=== PATIENT | female | born 1960 | race Caucasian/White ===

== ENCOUNTER 2017-11-17 03:05 | Emergency (ER) | payer OTHER ==
[2017-11-17] MEDS ORDERED: LIDOCAINE HCL 1% 20 ML VIAL ONE ×2 (03:56→04:04)
[2017-11-17] MEDS ORDERED: TETANUS/DIPHTHERIA TOXOID [ADULT] 0.5 ML VIAL IM ONE (04:04)
[2017-11-17 04:09] LABS: BASOPHILS % (AUTO) 0.7 % (0.0-5.0); LYMPHOCYTES % (AUTO) 20.8 % (21.0-51.0); MEAN CORPUSCULAR HEMOGLOBIN 31.1 pg (27.0-33.0); MEAN CORPUSCULAR HGB CONC 34.1 g/dL (32.0-36.0); MEAN CORPUSCULAR VOLUME 91.3 fL (79-99); MONOCYTES % (AUTO) 6.1 % (3.0-13.0); NEUTROPHILS % (AUTO) 68.4 % (40.0-77.0); PLATELET COUNT (AUTO) 263 K/uL (130-400); RED BLOOD CELL COUNT(AUTO) 4.49 MIL/uL (4.00-5.50); RED CELL DISTRIBUTION WIDTH 13.7 % (11.0-15.5); WHITE BLOOD COUNT (AUTO) 9.4 K/uL (4.8-10.8)
[2017-11-17 04:20] LABS: INR 0.94 (0.85-1.15); PARTIAL THROMBOPLASTIN TIME 27.4 SEC (26.3-35.5); PROTHROMBIN TIME 9.9 SEC (9.6-11.6)
[2017-11-17] MEDS ORDERED: IPRATROPIUM/ALBUTEROL SULFATE 3 ML SOLUTION IH ONE (04:20)
[2017-11-17 04:22] LABS: CREATININE 0.9 mg/dL (0.5-1.5)
[2017-11-17 04:27] LABS: ALBUMIN 3.3 g/dL (3.5-5.0); BILIRUBIN,TOTAL 0.2 mg/dL (0.2-1.0)
[2017-11-17 04:34] LABS: CREATINE KINASE MB 2.9 ng/mL (0.5-3.6); CREATINE KINASE, TOTAL 136 U/L (21-232); MYOGLOBIN 56 ng/mL (10-92); TROPONIN I < 0.04 ng/mL (0.00-0.06)
[2017-11-30] MEDS ORDERED: VALS320T15 PO (10:58)
== END 2017-11-17 05:13 | disposition home or self-care (01) ==
LOC: EDH 03:05
DX: S02.2XXA Fracture of nasal bones, initial encounter for closed fracture (principal); S01.21XA Laceration without foreign body of nose, initial encounter; I10 Essential (primary) hypertension; E11.9 Type 2 diabetes mellitus without complications; E78.5 Hyperlipidemia, unspecified; I25.10 Atherosclerotic heart disease of native coronary artery without angina pectoris; I48.91 Unspecified atrial fibrillation; J44.9 Chronic obstructive pulmonary disease, unspecified; Z79.4 Long term (current) use of insulin; Z72.0 Tobacco use; W01.198A Fall on same level from slipping, tripping and stumbling with subsequent striking against other object, initial encounter; Y93.01 Activity, walking, marching and hiking; Y92.89 Other specified places as the place of occurrence of the external cause; Y99.8 Other external cause status
CPT/HCPCS: 12011; 36415; 70450; 70486; 71045; 80053; 82550; 82553; 83874; 84484; 85025; 85610; 85730; 90471; 90714; 93005; 94640

== ENCOUNTER 2017-11-30 02:00 | Inpatient (IN) | payer OTHER ==
[~2017-11-30] VITALS: Ht 157.5 cm; Wt 97.4 kg
[2017-11-30 02:57] LABS: BASOPHILS % (AUTO) 0.5 % (0.0-5.0); EOSINOPHILS % (AUTO) 3.1 % (0.0-8.0); HEMATOCRIT 40.4 % (36-48); LYMPHOCYTES % (AUTO) 23.2 % (21.0-51.0); MEAN CORPUSCULAR HEMOGLOBIN 31.9 pg (27.0-33.0); MEAN CORPUSCULAR HGB CONC 34.4 g/dL (32.0-36.0); MEAN CORPUSCULAR VOLUME 92.6 fL (79-99); MONOCYTES % (AUTO) 6.9 % (3.0-13.0); NEUTROPHILS % (AUTO) 66.3 % (40.0-77.0); PLATELET COUNT (AUTO) 268 K/uL (130-400); RED BLOOD CELL COUNT(AUTO) 4.37 MIL/uL (4.00-5.50); RED CELL DISTRIBUTION WIDTH 14.1 % (11.0-15.5)
[2017-11-30 03:09] LABS: CREATININE 0.8 mg/dL (0.5-1.5); POTASSIUM 3.9 mmol/L (3.5-5.1)
[2017-11-30 03:13] LABS: ALBUMIN 3.4 g/dL (3.5-5.0); BILIRUBIN,TOTAL 0.4 mg/dL (0.2-1.0); TOTAL PROTEIN, SERUM 7.3 g/dL (6.0-8.3)
[2017-11-30] MEDS ORDERED: VANCOMYCIN 1GM+NS 250ML 250 ML IV ONE (05:30)
[2017-11-30] MEDS ORDERED: SODIUM CHLORIDE 0.9% 1000ML 1,000 ML IV ONE (06:01)
[2017-11-30 08:10] VITALS: BP 139/87
[2017-11-30] MEDS ORDERED: LAMO200T PO (10:58)
[2017-11-30] MEDS ORDERED: VALS320T16 PO (10:58)
[2017-11-30] MEDS ORDERED: PRAM1.5T3 PO (10:58)
[2017-11-30] MEDS ORDERED: MULT-1192 PO (10:58)
[2017-11-30] MEDS ORDERED: METO25TA6 PO (10:58)
[2017-11-30] MEDS ORDERED: INSLAN SQ (10:58)
[2017-11-30] MEDS ORDERED: ASPI-555 PO (10:58)
[2017-11-30] MEDS ORDERED: CLOP75TA14 PO (10:58)
[2017-11-30] MEDS ORDERED: CITA-107 PO (10:58)
[2017-11-30] MEDS ORDERED: THEO400T3 PO (10:58)
[2017-11-30] MEDS ORDERED: ATOR10 PO (10:58)
[2017-11-30] MEDS ORDERED: AMLO10TA2 PO (10:58)
[2017-11-30] MEDS ORDERED: LEVE1000 PO (10:58)
[2017-11-30] MEDS ORDERED: CYAN100099 PO (10:58)
[2017-11-30 11:00] VITALS: BP 131/76
[2017-11-30] MEDS: INSULIN HUMULIN R 100 UNIT/ML 3ML SQ SCH ×3 (11:30→21:04)
[2017-11-30] MEDS ORDERED: GLUCAGON 1MG KIT 1 MG ML IM PRN (12:30)
[2017-11-30] MEDS ORDERED: ACETAMINOPHEN 325 MG TAB PO PRN ×2 (12:30)
[2017-11-30] MEDS ORDERED: CLONIDINE HCL 0.1 MG TABLET PO PRN (12:30)
[2017-11-30] MEDS ORDERED: POTASSIUM CHLORIDE 20 MEQ ERTAB PO PRN (12:30)
[2017-11-30] MEDS ORDERED: ZOLPIDEM TARTRATE 5 MG TAB PO PRN (12:30)
[2017-11-30] MEDS ORDERED: POTASSIUM CHLORIDE 20MEQ/100ML 100 ML IV PRN (12:30)
[2017-11-30] MEDS ORDERED: DEXTROSE 50%-WATER 50 ML DISP.SYRIN IV PRN (12:30)
[2017-11-30] MEDS ORDERED: LIDOCAINE HCL-MPF 1% 2ML VIAL IJ PRN (12:30)
[2017-11-30] MEDS ORDERED: LACTULOSE 20 GM/30 ML UDCUP PO PRN (12:30)
[2017-11-30] MEDS ORDERED: POTASSIUM CHLORIDE 10% ELIXIR 20 MEQ/15 ML UDCUP PO PRN (12:30)
[2017-11-30] MEDS ORDERED: MORPHINE SULFATE 2 MG/ML 1ML SYG IVP PRN (12:45)
[2017-11-30] MEDS ORDERED: VANCOMYCIN PROTOCOL PER PHARMACY IV SCH (12:45)
[2017-11-30] MEDS ORDERED: PHARMACY COMMUNICATION MISC SCH (12:45)
[2017-11-30] MEDS ORDERED: COMPOUND IV REFRIGERATED 1 EACH IVSOLN MISC PRN (12:45)
[2017-11-30] MEDS ORDERED: VANCOMYCIN 1.5 GM in SODIUM CHLORIDE 0.9% 250 ML IV SCH (13:00)
[2017-11-30] MEDS: LEVOFLOXACIN 500 MG/D5W 100 ML 100 ML IV SCH (13:07)
[2017-11-30] MEDS: NICOTINE 14 MG/ 24 HR PATCH TD SCH (13:07)
[2017-11-30] MEDS: INSULIN R PO SSI SQ SCH ×2 (15:08→21:00)
[2017-11-30 16:23] VITALS: BP 135/77
[2017-11-30 19:20] VITALS: BP 136/74
[2017-11-30] MEDS: LEVETIRACETAM 500 MG TABLET PO SCH (19:56)
[2017-11-30] MEDS: THEOPHYLLINE ANHYDROUS 100 MG TAB.SR.12H PO SCH (19:56)
[2017-11-30] MEDS: ATORVASTATIN CALCIUM 10 MG TABLET PO SCH (19:56)
[2017-11-30] MEDS: FAMOTIDINE 20MG TAB 20 MG TAB PO SCH (19:57)
[2017-11-30] MEDS: PRAMIPEXOLE DI HCL 1.5 MG PO SCH (21:00)
[2017-11-30] MEDS: LAMOTRIGINE 300 MG PO SCH (21:00)
[2017-11-30] MEDS: INSULIN GLARGINE 100 UNITS/ML 10 ML VIAL SQ SCH (21:06)
[2017-12-01 00:15] VITALS: BP 120/69
[2017-12-01] MEDS: VANCOMYCIN 1GM+NS 250ML 250 ML IV SCH ×2 (00:32→16:14)
[2017-12-01 04:15] VITALS: BP 123/65
[2017-12-01 06:00] LABS: HEMATOCRIT 39.6 % (36-48); MEAN CORPUSCULAR HEMOGLOBIN 31.6 pg (27.0-33.0); MEAN CORPUSCULAR HGB CONC 34.2 g/dL (32.0-36.0); MEAN CORPUSCULAR VOLUME 92.3 fL (79-99); PLATELET COUNT (AUTO) 290 K/uL (130-400); RED BLOOD CELL COUNT(AUTO) 4.29 MIL/uL (4.00-5.50); RED CELL DISTRIBUTION WIDTH 14.1 % (11.0-15.5); WHITE BLOOD COUNT (AUTO) 8.2 K/uL (4.8-10.8)
[2017-12-01 06:12] LABS: CREATININE 0.8 mg/dL (0.5-1.5); POTASSIUM 3.9 mmol/L (3.5-5.1)
[2017-12-01] MEDS: INSULIN R PO SSI SQ SCH ×4 (06:22→20:55)
[2017-12-01 08:00] VITALS: BP 150/61
[2017-12-01] MEDS: CITALOPRAM 20 MG TABLET PO SCH (09:25)
[2017-12-01] MEDS: ASPIRIN 81 MG EC TAB PO SCH (09:25)
[2017-12-01] MEDS: METOPROLOL TARTRATE 25 MG TAB PO SCH (09:25)
[2017-12-01] MEDS: CYANOCOBALAMIN (VITAMIN B-12) 1,000 MCG TABLET PO SCH (09:25)
[2017-12-01] MEDS: LOSARTAN 100 MG TABLET PO SCH (09:25)
[2017-12-01] MEDS: CLOPIDOGREL BISULFATE 75 MG TAB PO SCH (09:25)
[2017-12-01] MEDS: FAMOTIDINE 20MG TAB 20 MG TAB PO SCH ×2 (09:26→20:27)
[2017-12-01] MEDS: AMLODIPINE BESYLATE 5 MG TAB PO SCH (09:26)
[2017-12-01] MEDS: NICOTINE 14 MG/ 24 HR PATCH TD SCH (09:28)
[2017-12-01] MEDS: ENOXAPARIN SODIUM 30 MG/0.3 ML SQ SCH (09:28)
[2017-12-01] MEDS: MULTIVITAMIN TABLET PO SCH (09:29)
[2017-12-01] MEDS: LEVETIRACETAM 500 MG TABLET PO SCH ×2 (09:29→20:27)
[2017-12-01] MEDS: LAMOTRIGINE 300 MG PO SCH ×2 (09:36→20:27)
[2017-12-01] MEDS: LEVOFLOXACIN 500 MG/D5W 100 ML 100 ML IV SCH (11:17)
[2017-12-01 12:00] VITALS: BP 134/80
[2017-12-01 16:00] VITALS: BP 113/72
[2017-12-01 20:00] VITALS: BP 112/60
[2017-12-01] MEDS: ATORVASTATIN CALCIUM 10 MG TABLET PO SCH (20:27)
[2017-12-01] MEDS: THEOPHYLLINE ANHYDROUS 100 MG TAB.SR.12H PO SCH (20:27)
[2017-12-01] MEDS: PRAMIPEXOLE DI HCL 1.5 MG PO SCH (20:28)
[2017-12-01] MEDS: INSULIN GLARGINE 100 UNITS/ML 10 ML VIAL SQ SCH (21:07)
[2017-12-02] VITALS: BP 129/84
[2017-12-02] MEDS: VANCOMYCIN 1GM+NS 250ML 250 ML IV SCH (00:56)
[2017-12-02] MEDS: INSULIN R PO SSI SQ SCH ×4 (06:07→20:46)
[2017-12-02 08:00] VITALS: BP 131/77
[2017-12-02] MEDS: CITALOPRAM 20 MG TABLET PO SCH (08:30)
[2017-12-02] MEDS: LOSARTAN 100 MG TABLET PO SCH (08:30)
[2017-12-02] MEDS: FAMOTIDINE 20MG TAB 20 MG TAB PO SCH ×2 (08:30→20:37)
[2017-12-02] MEDS: AMLODIPINE BESYLATE 5 MG TAB PO SCH (08:30)
[2017-12-02] MEDS: CLOPIDOGREL BISULFATE 75 MG TAB PO SCH (08:30)
[2017-12-02] MEDS: LEVETIRACETAM 500 MG TABLET PO SCH ×2 (08:30→20:37)
[2017-12-02] MEDS: ASPIRIN 81 MG EC TAB PO SCH (08:30)
[2017-12-02] MEDS: METOPROLOL TARTRATE 25 MG TAB PO SCH (08:30)
[2017-12-02] MEDS: MULTIVITAMIN TABLET PO SCH (08:31)
[2017-12-02] MEDS: LEVOFLOXACIN 500 MG/D5W 100 ML 100 ML IV SCH (08:33)
[2017-12-02] MEDS: NICOTINE 14 MG/ 24 HR PATCH TD SCH (08:33)
[2017-12-02] MEDS: ENOXAPARIN SODIUM 30 MG/0.3 ML SQ SCH (08:34)
[2017-12-02] MEDS: LAMOTRIGINE 300 MG PO SCH ×2 (08:40→20:37)
[2017-12-02] MEDS: CYANOCOBALAMIN (VITAMIN B-12) 1,000 MCG TABLET PO SCH (08:42)
[2017-12-02 12:00] VITALS: BP 122/72
[2017-12-02] MEDS ORDERED: COMPOUND IV REFRIGERATED 1 EACH IVSOLN MISC PRN (13:45)
[2017-12-02] MEDS: VANCOMYCIN 1.25 GM in SODIUM CHLORIDE 0.9% 250 ML IV SCH (14:28)
[2017-12-02 16:00] VITALS: BP 123/56
[2017-12-02] MEDS: THEOPHYLLINE ANHYDROUS 100 MG TAB.SR.12H PO SCH (20:37)
[2017-12-02] MEDS: ATORVASTATIN CALCIUM 10 MG TABLET PO SCH (20:37)
[2017-12-02] MEDS: PRAMIPEXOLE DI HCL 1.5 MG PO SCH (20:37)
[2017-12-02] MEDS: INSULIN GLARGINE 100 UNITS/ML 10 ML VIAL SQ SCH (20:46)
[2017-12-03] VITALS: BP 123/56
[2017-12-03] MEDS ORDERED: VANCOMYCIN 1GM+NS 250ML 500 ML IV ONE (01:43)
[2017-12-03] MEDS: VANCOMYCIN 1.25 GM in SODIUM CHLORIDE 0.9% 250 ML IV SCH ×2 (01:46→15:36)
[2017-12-03 04:00] VITALS: BP 130/78
[2017-12-03 04:37] LABS: HEMATOCRIT 39.1 % (36-48); MEAN CORPUSCULAR HEMOGLOBIN 31.6 pg (27.0-33.0); MEAN CORPUSCULAR HGB CONC 34.2 g/dL (32.0-36.0); MEAN CORPUSCULAR VOLUME 92.4 fL (79-99); NUCLEATED RED BLOOD CELLS 0.1 % (0.0-0.19); PLATELET COUNT (AUTO) 272 K/uL (130-400); RED BLOOD CELL COUNT(AUTO) 4.23 MIL/uL (4.00-5.50); RED CELL DISTRIBUTION WIDTH 14.2 % (11.0-15.5); WHITE BLOOD COUNT (AUTO) 8.8 K/uL (4.8-10.8)
[2017-12-03 04:44] LABS: CREATININE 0.9 mg/dL (0.5-1.5); POTASSIUM 4.1 mmol/L (3.5-5.1)
[2017-12-03] MEDS: INSULIN R PO SSI SQ SCH ×4 (06:07→22:46)
[2017-12-03 08:00] VITALS: BP 132/72
[2017-12-03] MEDS: CITALOPRAM 20 MG TABLET PO SCH (08:04)
[2017-12-03] MEDS: FAMOTIDINE 20MG TAB 20 MG TAB PO SCH ×2 (08:04→22:29)
[2017-12-03] MEDS: ASPIRIN 81 MG EC TAB PO SCH (08:04)
[2017-12-03] MEDS: METOPROLOL TARTRATE 25 MG TAB PO SCH (08:04)
[2017-12-03] MEDS: CYANOCOBALAMIN (VITAMIN B-12) 1,000 MCG TABLET PO SCH (08:04)
[2017-12-03] MEDS: AMLODIPINE BESYLATE 5 MG TAB PO SCH (08:04)
[2017-12-03] MEDS: LOSARTAN 100 MG TABLET PO SCH (08:04)
[2017-12-03] MEDS: LEVETIRACETAM 500 MG TABLET PO SCH ×2 (08:04→22:28)
[2017-12-03] MEDS: CLOPIDOGREL BISULFATE 75 MG TAB PO SCH (08:04)
[2017-12-03] MEDS: MULTIVITAMIN TABLET PO SCH (08:04)
[2017-12-03] MEDS: NICOTINE 14 MG/ 24 HR PATCH TD SCH (08:05)
[2017-12-03] MEDS: ENOXAPARIN SODIUM 30 MG/0.3 ML SQ SCH (08:05)
[2017-12-03] MEDS: LAMOTRIGINE 300 MG PO SCH ×2 (08:06→22:34)
[2017-12-03] MEDS: LEVOFLOXACIN 500 MG/D5W 100 ML 100 ML IV SCH (08:13)
[2017-12-03 11:44] VITALS: BP 115/69
[2017-12-03] MEDS: FUROSEMIDE 10 MG/ML 2ML VIAL IV SCH (12:04)
[2017-12-03 16:00] VITALS: BP 114/59
[2017-12-03 19:46] VITALS: BP 115/65
[2017-12-03] MEDS: THEOPHYLLINE ANHYDROUS 100 MG TAB.SR.12H PO SCH (22:29)
[2017-12-03] MEDS: ATORVASTATIN CALCIUM 10 MG TABLET PO SCH (22:29)
[2017-12-03] MEDS: PRAMIPEXOLE DI HCL 1.5 MG PO SCH (22:36)
[2017-12-03] MEDS: INSULIN GLARGINE 100 UNITS/ML 10 ML VIAL SQ SCH (22:45)
[2017-12-04 00:25] VITALS: BP 120/58
[2017-12-04 04:33] VITALS: BP 124/72
[2017-12-04] MEDS: VANCOMYCIN 1.25 GM in SODIUM CHLORIDE 0.9% 250 ML IV SCH (04:58)
[2017-12-04] MEDS: INSULIN R PO SSI SQ SCH (07:08)
[2017-12-04] MEDS: LOSARTAN 100 MG TABLET PO SCH (09:00)
[2017-12-04] MEDS: CLOPIDOGREL BISULFATE 75 MG TAB PO SCH (09:00)
[2017-12-04] MEDS: LAMOTRIGINE 300 MG PO SCH (09:00)
[2017-12-04] MEDS: NICOTINE 14 MG/ 24 HR PATCH TD SCH (09:00)
[2017-12-04 09:12] VITALS: BP 114/66
[2017-12-04] MEDS: FUROSEMIDE 10 MG/ML 2ML VIAL IV SCH (09:30)
[2017-12-04] MEDS ORDERED: DOXY100T2 PO (10:26)
[2017-12-04] MEDS: LEVOFLOXACIN 500 MG/D5W 100 ML 100 ML IV SCH (10:30)
[2017-12-04] MEDS: LEVETIRACETAM 500 MG TABLET PO SCH (11:46)
[2017-12-04] MEDS: AMLODIPINE BESYLATE 5 MG TAB PO SCH (11:47)
[2017-12-04] MEDS: METOPROLOL TARTRATE 25 MG TAB PO SCH (11:47)
[2017-12-04] MEDS: CYANOCOBALAMIN (VITAMIN B-12) 1,000 MCG TABLET PO SCH (11:47)
[2017-12-04] MEDS: MULTIVITAMIN TABLET PO SCH (11:47)
[2017-12-04] MEDS: CITALOPRAM 20 MG TABLET PO SCH (11:48)
[2017-12-04] MEDS: FAMOTIDINE 20MG TAB 20 MG TAB PO SCH (11:48)
== END 2017-12-04 12:07 | disposition home or self-care (01) | DRG 603 ==
LOC: EDH 02:00 → OBSVTOIN 05:51 → EDHIP 05:51 → 3DH 07:57
PROVIDERS: ADMIT Family Medicine; ATTEND Family Medicine
DX: L03.115 Cellulitis of right lower limb (principal); E11.65 Type 2 diabetes mellitus with hyperglycemia; R56.9 Unspecified convulsions; I25.10 Atherosclerotic heart disease of native coronary artery without angina pectoris; J44.9 Chronic obstructive pulmonary disease, unspecified; I10 Essential (primary) hypertension; E78.5 Hyperlipidemia, unspecified; Z72.0 Tobacco use; I48.91 Unspecified atrial fibrillation; Z90.710 Acquired absence of both cervix and uterus; Z88.0 Allergy status to penicillin; Z82.49 Family history of ischemic heart disease and other diseases of the circulatory system
CPT/HCPCS: 36415; 73700; 76882; 80048; 80053; 80202; 82948; 85025; 85027; 93971; J1650; J1815; J1940; J1956; J3370; J7030

== ENCOUNTER 2017-12-26 12:04 | Inpatient (IN) | payer OTHER ==
[~2017-12-26] VITALS: Ht 157.5 cm; Wt 97.8 kg
[~2017-12-26 12:04] MED LIST: AMLO10TA2 PO; ASPI-555 PO; ATOR10 PO; CITA-107 PO; CYAN100099 PO; DOXY100T2 PO; INSLAN SQ; LAMO200T PO; LEVE1000 PO; METO25TA6 PO; MULT-1192 PO; PRAM1.5T3 PO; THEO400T3 PO; VALS320T16 PO
[2017-12-26 12:54] LABS: BASOPHILS % (AUTO) 0.6 % (0.0-5.0); EOSINOPHILS % (AUTO) 2.5 % (0.0-8.0); HEMATOCRIT 39.5 % (36-48); LYMPHOCYTES % (AUTO) 21.7 % (21.0-51.0); MEAN CORPUSCULAR HGB CONC 34.9 g/dL (32.0-36.0); MEAN CORPUSCULAR VOLUME 91.7 fL (79-99); MONOCYTES % (AUTO) 4.7 % (3.0-13.0); NEUTROPHILS % (AUTO) 70.5 % (40.0-77.0); PLATELET COUNT (AUTO) 263 K/uL (130-400); RED BLOOD CELL COUNT(AUTO) 4.31 MIL/uL (4.00-5.50); RED CELL DISTRIBUTION WIDTH 13.9 % (11.0-15.5); WHITE BLOOD COUNT (AUTO) 10.1 K/uL (4.8-10.8)
[2017-12-26 13:04] LABS: CREATININE 0.9 mg/dL (0.5-1.5); POTASSIUM 3.8 mmol/L (3.5-5.1)
[2017-12-26 13:09] LABS: ALBUMIN 3.2 g/dL (3.5-5.0); BILIRUBIN,TOTAL 0.3 mg/dL (0.2-1.0); TOTAL PROTEIN, SERUM 6.7 g/dL (6.0-8.3)
[2017-12-26 13:18] LABS: INR 0.96 (0.85-1.15); PROTHROMBIN TIME 10.1 SEC (9.6-11.6)
[2017-12-26] MEDS ORDERED: VANCOMYCIN 1GM+NS 250ML 250 ML IV ONE (15:18)
[2017-12-26] MEDS ORDERED: ONDANSETRON HCL 4 MG/2 ML VIAL IVP PRN (18:15)
[2017-12-26] MEDS: LEVOFLOXACIN 500 MG/D5W 100 ML 100 ML IV SCH (18:15)
[2017-12-26] MEDS ORDERED: ACETAMINOPHEN 325 MG TAB PO PRN ×2 (18:15)
[2017-12-26] MEDS ORDERED: DEXTROSE 50%-WATER 50 ML DISP.SYRIN IV PRN (18:15)
[2017-12-26] MEDS ORDERED: MORPHINE SULFATE 4 MG/1ML SYG IVP PRN ×2 (18:15)
[2017-12-26] MEDS ORDERED: SODIUM CHLORIDE 0.9% 10 ML VIAL IVP SCH (18:15)
[2017-12-26] MEDS ORDERED: GLUCAGON 1MG KIT 1 MG ML IM PRN (18:15)
[2017-12-26 20:00] VITALS: BP 106/56
[2017-12-26] MEDS: INSULIN R PO SSI SQ SCH (21:09)
[2017-12-26] MEDS: IPRATROPIUM/ALBUTEROL SULFATE 3 ML SOLUTION IH SCH (22:09)
[2017-12-26] MEDS ORDERED: PRAM1.5T3 PO (22:29)
[2017-12-26] MEDS ORDERED: CLOP75TA32 PO (22:29)
[2017-12-26] MEDS ORDERED: POTASSIUM CHLORIDE 20MEQ/100ML 100 ML IV PRN ×2 (23:30)
[2017-12-26] MEDS ORDERED: LIDOCAINE HCL-MPF 1% 2ML VIAL IVP PRN ×2 (23:30)
[2017-12-26] MEDS ORDERED: HYDRALAZINE HCL 20 MG/ML VIAL IV PRN (23:30)
[2017-12-26] MEDS ORDERED: POTASSIUM CHLORIDE 10% ELIXIR 20 MEQ/15 ML UDCUP PO PRN (23:30)
[2017-12-26] MEDS ORDERED: POTASSIUM CHLORIDE 20 MEQ ERTAB PO PRN (23:30)
[2017-12-26] MEDS ORDERED: LORAZEPAM 2 MG/ML 1 ML VIAL IVP PRN (23:30)
[2017-12-26 23:49] VITALS: BP 104/58
[2017-12-27] MEDS ORDERED: LAMOTRIGINE 25 MG TAB ONE ×2 (00:31→00:35)
[2017-12-27] MEDS: LEVETIRACETAM 500 MG TABLET PO SCH ×3 (00:42→21:03)
[2017-12-27] MEDS: PRAMIPEXOLE DI-HCL 0.25 MG TABLET PO SCH ×2 (01:00→21:02)
[2017-12-27 03:40] VITALS: BP 103/73
[2017-12-27] MEDS: VANCOMYCIN 1GM+NS 250ML 250 ML IV SCH ×2 (03:48→17:05)
[2017-12-27 04:31] LABS: BASOPHILS % (AUTO) 0.3 % (0.0-5.0); EOSINOPHILS % (AUTO) 3.6 % (0.0-8.0); HEMATOCRIT 39.2 % (36-48); LYMPHOCYTES % (AUTO) 26.2 % (21.0-51.0); MEAN CORPUSCULAR HEMOGLOBIN 31.2 pg (27.0-33.0); MEAN CORPUSCULAR HGB CONC 34.1 g/dL (32.0-36.0); MEAN CORPUSCULAR VOLUME 91.3 fL (79-99); NEUTROPHILS % (AUTO) 63.9 % (40.0-77.0); PLATELET COUNT (AUTO) 265 K/uL (130-400); RED BLOOD CELL COUNT(AUTO) 4.29 MIL/uL (4.00-5.50); RED CELL DISTRIBUTION WIDTH 14.1 % (11.0-15.5); WHITE BLOOD COUNT (AUTO) 8.9 K/uL (4.8-10.8)
[2017-12-27 04:40] LABS: CARBON DIOXIDE 27 mmol/L (21-32); CHLORIDE 106 mmol/L (101-111); CREATININE 0.8 mg/dL (0.5-1.5); GLOMERULAR FILTR. RATE CALC 79 mL/min (>60); GLUCOSE,RANDOM 142 mg/dL (70-105); POTASSIUM 3.8 mmol/L (3.5-5.1); SODIUM SERUM 140 mmol/L (136-145); UREA NITROGEN, BLOOD 11 mg/dL (7-18)
[2017-12-27 04:43] LABS: THEOPHYLLINE < 2.0 mcg/mL (10.0-20.0)
[2017-12-27] MEDS: IPRATROPIUM/ALBUTEROL SULFATE 3 ML SOLUTION IH SCH ×2 (06:00→22:00)
[2017-12-27] MEDS: INSULIN R PO SSI SQ SCH ×4 (06:54→21:25)
[2017-12-27 08:00] VITALS: BP 123/67
[2017-12-27] MEDS: VALSARTAN 320 MG PO SCH (09:00)
[2017-12-27] MEDS: THEOPHYLLINE ANHYDROUS 400 MG PO SCH (09:00)
[2017-12-27] MEDS: ASPIRIN 81 MG EC TAB PO SCH (10:03)
[2017-12-27] MEDS: CITALOPRAM 20 MG TABLET PO SCH (10:03)
[2017-12-27] MEDS: MULTIVITAMIN TABLET PO SCH (10:05)
[2017-12-27] MEDS: METOPROLOL TARTRATE 25 MG TAB PO SCH (10:05)
[2017-12-27] MEDS: LAMOTRIGINE 25 MG TAB PO SCH ×2 (10:05→21:02)
[2017-12-27] MEDS: CYANOCOBALAMIN (VITAMIN B-12) 1,000 MCG TABLET PO SCH (10:06)
[2017-12-27] MEDS: CLOPIDOGREL BISULFATE 75 MG TAB PO SCH (10:06)
[2017-12-27] MEDS: AMLODIPINE BESYLATE 5 MG TAB PO SCH (10:06)
[2017-12-27 11:22] VITALS: BP 125/73
[2017-12-27 16:00] VITALS: BP_SYST 101; BP_SYST 110; BP_DIAS 62; BP_DIAS 65
[2017-12-27] MEDS: LEVOFLOXACIN 500 MG/D5W 100 ML 100 ML IV SCH (18:25)
[2017-12-27 19:05] VITALS: BP 111/64
[2017-12-27] MEDS ORDERED: INSULIN GLARGINE 100 UNITS/ML 10 ML VIAL SQ SCH (21:00)
[2017-12-27] MEDS ORDERED: ATORVASTATIN CALCIUM 10 MG TABLET PO SCH (21:00)
[2017-12-28 00:08] VITALS: BP 109/64
[2017-12-28] MEDS: VANCOMYCIN 1GM+NS 250ML 250 ML IV SCH (02:34)
[2017-12-28 04:05] VITALS: BP 119/66
[2017-12-28 05:33] LABS: BASOPHILS % (AUTO) 0.5 % (0.0-5.0); EOSINOPHILS % (AUTO) 4.5 % (0.0-8.0); HEMATOCRIT 38.6 % (36-48); LYMPHOCYTES % (AUTO) 26.8 % (21.0-51.0); MEAN CORPUSCULAR HGB CONC 34.8 g/dL (32.0-36.0); MEAN CORPUSCULAR VOLUME 92.1 fL (79-99); MONOCYTES % (AUTO) 6.5 % (3.0-13.0); NEUTROPHILS % (AUTO) 61.7 % (40.0-77.0); NUCLEATED RED BLOOD CELLS 0.1 % (0.0-0.19); PLATELET COUNT (AUTO) 241 K/uL (130-400); RED BLOOD CELL COUNT(AUTO) 4.19 MIL/uL (4.00-5.50); RED CELL DISTRIBUTION WIDTH 14.2 % (11.0-15.5); WHITE BLOOD COUNT (AUTO) 8.7 K/uL (4.8-10.8)
[2017-12-28 05:50] LABS: CREATININE 0.9 mg/dL (0.5-1.5); POTASSIUM 4.4 mmol/L (3.5-5.1)
[2017-12-28] MEDS: INSULIN R PO SSI SQ SCH ×2 (06:27→11:30)
[2017-12-28] MEDS: IPRATROPIUM/ALBUTEROL SULFATE 3 ML SOLUTION IH SCH (06:29)
[2017-12-28 08:00] VITALS: BP 115/69
[2017-12-28] MEDS: THEOPHYLLINE ANHYDROUS 400 MG PO SCH (09:00)
[2017-12-28] MEDS: VALSARTAN 320 MG PO SCH (09:00)
[2017-12-28] MEDS: ASPIRIN 81 MG EC TAB PO SCH (09:26)
[2017-12-28] MEDS: CITALOPRAM 20 MG TABLET PO SCH (09:26)
[2017-12-28] MEDS: LEVETIRACETAM 500 MG TABLET PO SCH (09:26)
[2017-12-28] MEDS: MULTIVITAMIN TABLET PO SCH (09:27)
[2017-12-28] MEDS: LAMOTRIGINE 25 MG TAB PO SCH (09:27)
[2017-12-28] MEDS: METOPROLOL TARTRATE 25 MG TAB PO SCH (09:27)
[2017-12-28] MEDS: AMLODIPINE BESYLATE 5 MG TAB PO SCH (09:28)
[2017-12-28] MEDS: CYANOCOBALAMIN (VITAMIN B-12) 1,000 MCG TABLET PO SCH (09:28)
[2017-12-28] MEDS: CLOPIDOGREL BISULFATE 75 MG TAB PO SCH (09:28)
[2017-12-28] MEDS ORDERED: SULF1TAB42 PO (11:42)
== END 2017-12-28 13:25 | disposition home or self-care (01) | DRG 603 ==
LOC: EDH 12:04 → EDHIP 15:25 → 3BH 18:19
PROVIDERS: ADMIT Internal Medicine; ATTEND Internal Medicine
DX: L03.115 Cellulitis of right lower limb (principal); E11.65 Type 2 diabetes mellitus with hyperglycemia; I48.91 Unspecified atrial fibrillation; G40.909 Epilepsy, unspecified, not intractable, without status epilepticus; B95.62 Methicillin resistant Staphylococcus aureus infection as the cause of diseases classified elsewhere; E78.5 Hyperlipidemia, unspecified; F17.210 Nicotine dependence, cigarettes, uncomplicated; F32.9 Major depressive disorder, single episode, unspecified; I10 Essential (primary) hypertension; I25.10 Atherosclerotic heart disease of native coronary artery without angina pectoris; J44.9 Chronic obstructive pulmonary disease, unspecified; Z95.5 Presence of coronary angioplasty implant and graft; Z90.710 Acquired absence of both cervix and uterus; Z82.49 Family history of ischemic heart disease and other diseases of the circulatory system
CPT/HCPCS: 36415; 76882; 80048; 80053; 80177; 80198; 82948; 85025; 85610; 85730; 93005; 93970; 94640; 94664; J1815; J1956; J3370